=== PATIENT | male | born 1985 | race Two or more races ===

== ENCOUNTER 2025-03-13 15:32 | Outpatient (OUT) | payer OTHER, SELFPAY ==
--- NOTE | 2025-03-13 15:45 | XR_ITS ---
The [address] [address] Patient Name: OCHOA BAKER MRN: [id number] date: 1985 Sex: M Assigned Patient Location: [facility] Current Patient Location: [facility] Accession/Order Number: [id number] Exam Date: 03/13/2025 15:50 Report Date: 03/13/2025 16:28 At the request of: RACHEL ORDONEZ NP Procedure: XR hand RT min 3V RIGHT HAND - 3 views COMPARISON: None REASON FOR EXAM: Third digits swelling status post injury FINDINGS: Soft tissue swelling involving the third digit noted. There is a subtle lucency involving the distal phalanx of the third digit noted with intra-articular extension worrisome for possible fracture. Additionally, there is a triangular-shaped density between the second and third MCP joints noted unclear this represents a foreign body versus a tiny fracture avulsion fracture fragment.. IMPRESSION: There are targeted soft tissue swelling with tiny nondisplaced fracture suspected involving the distal phalanx the level of the PIP joint. Triangular-shaped bone density between the second and third MCP joints unclear if this is a foreign body versus bone avulsion fracture fragment. Impression dictated by: Robson Solorio M.D. 03/13/2025 4:28 PM Dictation Location: [place] [address] Electronically authenticated by: [id number] Y Date: 03/13/2025 16:28
== END 2025-03-13 15:33 | disposition home or self-care (01) ==
LOC: RAD 15:36
PROVIDERS: Visit Provider Nurse Practitioner Primary Care
DX: F11.11 Opioid abuse, in remission (principal); F15.20 Other stimulant dependence, uncomplicated; F14.20 Cocaine dependence, uncomplicated; R22.31 Localized swelling, mass and lump, right upper limb
CPT/HCPCS: 73130

== ENCOUNTER 2025-03-20 14:27 | Emergency (ER) | payer OTHER, SELFPAY ==
[2025-03-20 14:32] VITALS: BP 143/90; PULSE 64; TEMP 36.6; O2SAT 99; BMI 31.3
--- NOTE | 2025-03-20 14:43 | ECG_ITS ---
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 Measurements Intervals [place]ena Rate: 62 P: 23 ID: 140 QRS: 56 QRSD: 80 T: 49 QT: 384 QTc: 390 Interpretive Statements 1100 Sinus rhythm 9110 normal ECG No previous ECG available for comparison Electronically Signed On 03-20-2025 17:24:25 EST by HERMAN COTTO M.D.
--- NOTE | 2025-03-20 14:44 | ED_ITS ---
HPI HPI - General Adult General Chief complaint: Psychiatric Symptoms Stated complaint: ALTERED MENTAL STATUS Time Seen by Provider: 03/20/25 14:39 Source: patient Mode of arrival: walk-in Limitations: no limitations History of Present Illness HPI narrative: 39-year-old male presents for suicidal thoughts. He tells me he would not act on them and has not acted on them. This time they began this morning. 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 He states he has a history of depression. He has been taking his medications. He states he has been clean from drugs for a month and has been at the drug treatment center for a week. Related Data Home Medications ?Medication ?Instructions ?Recorded ?Confirmed acetaminophen 500 mg tablet mg 03/20/25 amantadine HCl 100 mg capsule mg 03/20/25 amlodipine 5 mg tablet mg 03/20/25 amoxicillin 500 mg capsule mg 03/20/25 aripiprazole 5 mg tablet mg 03/20/25 atomoxetine 40 mg capsule mg PO 03/20/25 baclofen 10 mg tablet mg 03/20/25 buprenorphine 128 mg/0.36 mL mg subcut 03/20/25 solution,ext.rel.subcutaneous syringe (Brixadi Monthly) buprenorphine 24 mg/0.48 mL mg subcut 03/20/25 solution,exten.rel.subcutaneous syringe (Brixadi Weekly) buspirone 15 mg tablet mg 03/20/25 cariprazine 3 mg capsule (Vraylar) mg 03/20/25 cholecalciferol (vitamin D3) 25 03/20/25 mcg (1,000 unit) capsule cholecalciferol (vitamin D3) 25 03/20/25 mcg (1,000 unit) tablet cholecalciferol (vitamin D3) 50 03/20/25 mcg (2,000 unit) tablet clonidine HCl 0.1 mg tablet mg 03/20/25 cyclobenzaprine 10 mg tablet mg 03/20/25 diazepam 10 mg tablet mg 03/20/25 diclofenac sodium 1 % topical gel topical 03/20/25 diphenhydramine HCl 25 mg capsule mg 03/20/25 (Banophen) doxepin 50 mg capsule mg 03/20/25 escitalopram oxalate 20 mg tablet mg 03/20/25 fluticasone propionate 50 intranasal 03/20/25 mcg/actuation nasal spray,suspension gabapentin 100 mg capsule mg 03/20/25 gabapentin 300 mg capsule mg 03/20/25 hydroxyzine HCl 50 mg tablet mg 03/20/25 hydroxyzine pamoate 25 mg capsule mg 03/20/25 hydroxyzine pamoate 50 mg capsule mg 03/20/25 ibuprofen 400 mg tablet mg 03/20/25 ibuprofen 800 mg tablet mg 03/20/25 lidocaine 5 % topical patch patch 03/20/25 lorazepam 2 mg tablet mg 03/20/25 melatonin 10 mg capsule mg 03/20/25 mirtazapine 30 mg disintegrating mg 03/20/25 tablet multivitamin tab 03/20/25 multivitamin with folic acid 400 tab PO 03/20/25 mcg tablet (Therems Multivitamin) naloxone 4 mg/actuation nasal spray intranasal 5 naproxen 500 mg tablet mg 03/20/25 nicotine (polacrilex) 2 mg gum mg 03/20/25 nicotine (polacrilex) 4 mg buccal mg 03/20/25 lozenge nicotine (polacrilex) 4 mg gum mg 03/20/25 omeprazole 20 mg capsule,delayed mg 03/20/25 release ondansetron 4 mg disintegrating mg 03/20/25 tablet phenobarbital 100 mg tablet mg 03/20/25 promethazine 12.5 mg tablet mg 03/20/25 risperidone 0.5 mg tablet mg 03/20/25 thiamine HCl (vitamin B1) 100 mg mg 03/20/25 tablet (Vitamin B-1) trazodone 50 mg tablet mg 03/20/25 venlafaxine 75 mg capsule,extended mg PO 03/20/25 release 24 hr Allergies Allergy/AdvReac Type Severity Reaction Status Date / Time Penicillins Allergy Unknown Unknown Verified 03/20/25 14:32 Opioid HPI Opioid Management Most Recent Opioid Data: Ur Phencyclidine Scrn, (NEGATIVE) Negative Today, 17:05 Review of Systems ROS Narrative A ten point review of systems is negative except as noted above. PFSH PFSH Social History Little interest or pleasure in doing things: several days Feeling down, depressed, or hopeless: several days Exam Narrative Exam Narrative: Nurses note and vital signs reviewed General:The patient appears well and in no apparent distress. Patient is resting comfortably on cart. Skin:Warm, dry, no pallor noted.There is no rash noted. Head:Normocephalic, atraumatic Eye: Normal conjunctiva, no drainage Ears, Nose, Mouth, and Throat: oral mucosa is moist. Nares patent. Cardiovascular:Regular Rate and Rhythm Respiratory:Patient is in no distress, no accessory muscle use, lungs are clear to auscultation, no wheezing, rales or rhonchi Back:non-tender GI: Soft and nontender Musculoskeletal: The patient has no evidence of calf tenderness, no pitting edema, symmetrical pulses noted bilaterally Neurological:A&O x4, normal speech Psychiatric:Cooperative, soft-spoken Constitutional Vital Signs, click to edit/add: Last Vital Signs Temp 97.8 F 03/20/25 14:32 Pulse 66 03/20/25 18:24 Resp 16 03/20/25 14:32 BP 136/80 03/20/25 18:24 Pulse Ox 98 03/20/25 18:24 O2 Del Method Room Air 03/20/25 14:52 Course Vital Signs Vital signs: Vital Signs Temperature 97.8 F 03/20/25 14:32 Pulse Rate 64 03/20/25 14:32 Respiratory Rate 16 03/20/25 14:32 Blood Pressure 143/90 H 03/20/25 14:32 Pulse Oximetry 99 03/20/25 14:32 Oxygen Delivery Method Room Air 03/20/25 14:32 Temperature 97.8 F 03/20/25 14:32 Pulse Rate 66 03/20/25 18:24 Respiratory Rate 16 03/20/25 14:32 Blood Pressure 136/80 03/20/25 18:24 Pulse Oximetry 98 03/20/25 18:24 Oxygen Delivery Method Room Air 03/20/25 14:52 Medical Decision Making [facility] Narrative Medical decision making narrative: The patient is medically cleared and has been stable here. We are awaiting mental health services evaluation. Differential Diagnosis Differential Diagnosis: Suicidal ideation, depression Lab Data Lab results reviewed: Yes I reviewed the patient's lab results Labs: Lab Results 03/20/25 03/20/25 Range/Units 14:54 17:05 WBC 5.5 (4.0-11.0) 10^3/uL RBC 4.52 L (4.70-6.10) 10^6/uL Hgb 14.0 (14.0-18.0) g/dL Hct 40.0 L (42.0-54.0) % MCV 88.5 (80.0-94.0) fL MCH 31.0 (25.9-34.0) pg MCHC 35.0 (29.9-35.2) g/dL RDW 12.1 (11.0-15.0) % Plt Count 165 (150-450) 10^3/uL MPV 10.7 (9.5-13.5) fL Neut % (Auto) 59.1 (43.0-75.0) % Lymph % (Auto) 32.1 (20.5-60.0) % [place] % (Auto) 5.3 (1.7-12.0) % Eos % (Auto) 2.9 (0.9-7.0) % Baso % (Auto) 0.4 (0.2-2.0) % Neut # (Auto) 3.2 (1.4-6.5) 10^3/uL Lymph # (Auto) 1.8 (1.2-3.8) 10^3/uL [place] # (Auto) 0.3 (0.3-0.8) 10^3/uL Eos # (Auto) 0.2 (0.0-0.7) 10^3/uL Baso # (Auto) 0.0 (0.0-0.1) 10^3/uL Abs Immat Gran (auto) 0.01 (0.00-0.03) 10^3/uL Imm/Tot Granulo (auto) 0.2 (0.0-0.5) % Sodium 138 (136-145) mmol/L Potassium 4.1 (3.5-5.1) mmol/L Chloride 102 (98-107) mmol/L Carbon Dioxide 27.8 (21.0-32.0) mmol/L Anion Gap 12.3 BUN 19.0 H (7.0-18.0) mg/dL Creatinine 0.93 (0.70-1.30) mg/dL Est GFR ( Amer) >60 (>=60 mL/min/1.73m^2) Est GFR (Non-Af Amer) >60 (>=60 mL/min/1.73m^2) BUN/Creatinine Ratio 20.4 Glucose 100 (74-106) mg/dL Calcium 9.0 (8.5-10.1) mg/dL Urine Color Lt. yellow (YELLOW) Urine Clarity Clear (CLEAR) Urine pH 6.0 (5.0-9.0) Ur Specific [place] 1.025 (1.005-1.025) Urine Protein Negative (NEG/TRACE) mg/dL Urine Glucose (UA) Negative (NEGATIVE) mg/dL Urine Ketones Negative (NEGATIVE) mg/dL Urine Occult Blood Negative (NEGATIVE) Urine Nitrite Negative (NEGATIVE) Urine Bilirubin Negative (NEGATIVE) Urine Urobilinogen 0.2 (0.2-1.0) EU/dL Ur Leukocyte Esterase Negative (NEGATIVE) Urine RBC None seen (0-2) #/HPF Urine WBC None seen (NONE SEEN) #/HPF Ur Squamous Epith Cells Rare (NONE/RARE) #/LPF Urine Crystals None seen (None Seen) #/HPF Urine Bacteria Trace A (NONE SEEN) #/HPF Urine Casts None seen (NONE SEEN) #/LPF Urine Mucus Trace A (NONE SEEN) Salicylates <2.8 (<=19.9) mg/dL Urine Opiates Screen Negative (NEGATIVE) Ur Buprenorphine Scrn Negative (NEGATIVE) Ur Oxycodone Screen Negative (NEGATIVE) Urine Methadone Screen Negative (NEGATIVE) Acetaminophen <2.0 L (10.0-30.0) ug/mL Ur Barbiturates Screen Negative (NEGATIVE) U Tricyclic Antidepress Negative (NEGATIVE) Ur Phencyclidine Scrn Negative (NEGATIVE) Ur Amphetamines Screen Negative (NEGATIVE) U Methamphetamines Scrn Negative (NEGATIVE) U Benzodiazepines Scrn Negative (NEGATIVE) Urine Cocaine Screen Negative (NEGATIVE) U Cannabinoids Screen Negative (NEGATIVE) Ethanol Quant <3 mg/dL ECG Data Attestation: I personally reviewed and interpreted this ECG as follows: (EKG on my interpretation shows sinus rhythm with rate of 62 and no acute change.) Discharge Plan Discharge Patient Disposition: Still a Patient
[2025-03-20 15:10] LABS: Hematocrit 40.0 % (42.0-54.0); Hemoglobin 14.0 g/dL (14.0-18.0); Immature Granulocytes Abs Auto 0.01 10^3/uL (0.00-0.03); Immature Granulocytes Pct Auto 0.2 % (0.0-0.5); Lymphocytes Absolute Auto 1.8 10^3/uL (1.2-3.8); Mean Corpuscular HGB Conc 35.0 g/dL (29.9-35.2); Mean Corpuscular Hemoglobin 31.0 pg (25.9-34.0); Mean Corpuscular Volume 88.5 fL (80.0-94.0); Platelet Count 165 10^3/uL (150-450); Red Blood Count 4.52 10^6/uL (4.70-6.10); White Blood Count 5.5 10^3/uL (4.0-11.0)
[2025-03-20 15:14] LABS: Salicylate <2.8 mg/dL (<=19.9)
[2025-03-20 16:13] LABS: Anion Gap 12.3; Blood Urea Nitrogen 19.0 mg/dL (7.0-18.0); Calcium 9.0 mg/dL (8.5-10.1); Carbon Dioxide 27.8 mmol/L (21.0-32.0); Chloride 102 mmol/L (98-107); Estimated GFR (African America >60 (>=60 mL/min/1.73m^2); Estimated GFR (Non-African Ame >60 (>=60 mL/min/1.73m^2); Glucose 100 mg/dL (74-106); Potassium 4.1 mmol/L (3.5-5.1); Sodium 138 mmol/L (136-145)
[2025-03-20 16:17] LABS: Acetaminophen <2.0 ug/mL (10.0-30.0)
[2025-03-20 17:17] LABS: Glucose Urine UA NEGATIVE (NEGATIVE)
[2025-03-20 17:26] LABS: Cast Seen? NONE SEEN #/LPF (NONE SEEN); Crystals Seen? None Seen #/HPF (None Seen)
[2025-03-20 17:27] LABS: Cannabinoid Screen Urine NEGATIVE (NEGATIVE); Methamphetamines Screen Urine NEGATIVE (NEGATIVE); Tricyclic Antidepressant Urine NEGATIVE (NEGATIVE)
[2025-03-20 18:24] VITALS: BP 136/80; PULSE 66; O2SAT 98
[2025-03-20 19:44] VITALS: BP 131/76; PULSE 69; O2SAT 100
== END 2025-03-20 20:10 | disposition home or self-care (01) ==
PROVIDERS: Emergency Provider Emergency Medicine
DX: R45.851 Suicidal ideations (principal); F32.A Depression, unspecified
CPT/HCPCS: 36415; 80048; 80179; 80307; 80320; 80329; 81001; 85025; 93005; 99284